=== PATIENT | male | born 1940 | race Two or more races ===

== ENCOUNTER 2024-09-15 21:24 | Emergency (ER) | payer MEDICARE, OTHER ==
[~2024-09-15] VITALS: Ht 177.8 cm; Wt 72.6 kg
[2024-09-15 21:51] VITALS: TEMP 98.1
[2024-09-15] MEDS ORDERED: OXYMETAZOLINE HCL NASAL SPRAY 30 ML BOTTLE NS ONE (22:55)
[2024-09-15] MEDS: OXYMETAZOLINE HCL NASAL SPRAY 30 ML BOTTLE NS ONE (23:10)
[2024-09-15 23:17] LABS: BASOPHILS % (AUTO) 0.3 % (0.0-2.0); EOSINOPHILS # (AUTO) 0.2 K/uL (0.0-0.7); EOSINOPHILS % (AUTO) 1.1 % (0.0-6.0); HEMATOCRIT 31 % (39-51); HEMOGLOBIN 10.4 g/dL (13.5-17.5); LYMPHOCYTES # (AUTO) 0.9 K/uL (0.8-4.8); LYMPHOCYTES % (AUTO) 6.1 % (20.0-44.0); MEAN CORPUSCULAR HEMOGLOBIN 32 PG (26.0-33.0); MEAN CORPUSCULAR HGB CONC 33 g/dl (31.0-36.0); MEAN CORPUSCULAR VOLUME 96 fL (80-96); MONOCYTES # (AUTO) 0.8 K/uL (0.1-1.30); MONOCYTES % (AUTO) 5.3 % (2.0-12.0); NEUTROPHILS # (AUTO) 12.7 K/uL (1.8-8.9); NEUTROPHILS % (AUTO) 87.2 % (43.0-81.0); PLATELET COUNT (AUTO) 356 K/uL (150-450); RED BLOOD CELL COUNT(AUTO) 3.26 MIL/uL (4.5-6.0); WHITE BLOOD COUNT (AUTO) 14.6 K/uL (4.3-11.0)
[2024-09-15 23:30] LABS: CALCIUM, SERUM 8.5 mg/dL (8.5-10.1); CREATININE 0.9 mg/dL (0.6-1.3); POTASSIUM 4.3 mmol/L (3.5-5.1)
[2024-09-15 23:31] LABS: INR 1.14 (0.91-1.10)
[2024-09-15] MEDS ORDERED: OXYM30SP21 NS (23:40)
[2024-09-15] MEDS ORDERED: OXYM15MI4 NS (23:40)
[2024-09-15] MEDS ORDERED: SODI88SP18 BNOSTRILS (23:41)
[2024-09-15] MEDS ORDERED: TRANEXAMIC ACID 1,000 MG/10 ML VIAL ONE (23:44)
[2024-09-15] MEDS: TRANEXAMIC ACID 1,000 MG/10 ML VIAL TOP ONE (23:49)
[2024-09-16 00:15] VITALS: BP 113/59; O2SAT 96
== END 2024-09-16 00:48 | disposition home or self-care (01) ==
LOC: ER 21:26
DX: R04.0 Epistaxis (principal); I10 Essential (primary) hypertension; F32.A Depression, unspecified; Z79.01 Long term (current) use of anticoagulants
CPT/HCPCS: 36415; 80048-TC; 85025-TC; 85610-TC